=== PATIENT | female | born 1985 | race Caucasian/White ===

== ENCOUNTER 2018-05-23 13:52 | Emergency (ER) | payer BC, OTHER ==
[2018-05-23 14:00] VITALS: BP 113/77
[2018-05-23] MEDS ORDERED: AMOXICILLIN TRIHYDRATE 500 MG CAPSULE PO ONE (14:08)
[2018-05-23] MEDS ORDERED: AMOXICILLIN TR/POT CLAVULANATE 500-125 MG TAB PO ONE (14:08)
[2018-05-23] MEDS ORDERED: DIPH/PERTUSS(ACELL)/TETANUS VAC/PF 0.5 ML SYR (>=10YO) IM ONE (14:09)
[2018-05-23] MEDS ORDERED: IBUPROFEN 400 MG TABLET PO ONE (14:09)
[2018-05-23] MEDS ORDERED: ACETAMINOPHEN 325 MG TABLET PO ONE (14:09)
--- NOTE | 2018-05-23 14:10 | ER Document Report ---
HPI - HPI Patient complains to provider of: Dog bite right upper thigh Onset: Just prior to arrival Pain Level: 4 Context: 32-year-old bitten by a dog that belongs to a neighbor. The neighbor stated that the dog's immunizations are current. Patient is not allergic to any medicine. Tetanus status is unknown. Associated Symptoms: None Exacerbated by: Denies Relieved by: Denies Similar symptoms previously: No Recently seen / treated by doctor: No - ROS ROS below otherwise negative: Yes Systems Reviewed and Negative: Yes All other systems reviewed and negative Past Medical History - General Information source: Patient - Social History Smoking Status: Unknown if Ever Smoked Frequency of alcohol use: None Drug Abuse: None Occupation: minor Lives with: Family Family History: Reviewed & Not Pertinent - Medical History Medical History: Negative Surgical Hx: Negative Vertical Provider Document - CONSTITUTIONAL Agree With Documented VS: Yes Exam Limitations: No Limitations - INFECTION CONTROL TRAVEL OUTSIDE OF THE [place] IN LAST 30 DAYS: No - MUSCULOSKELETAL/EXTREMETIES Musculoskeletal/Extremeties: MAEW, FROM, Tender - Dog bite that is 1.5 x 3 cm full-thickness, wound edges are 3 mm apart, upper medial right thigh - NEURO Level of Consciousness: Alert Motor/Sensory: No Motor Deficit, No Sensory Deficit - DERM Integumentary: No Rash Course - Re-evaluation Re-evalutation: 05/23/18 14:24 Patient understands the instructions and since the dog's immunizations are current I told her that the [facility] animal control will contact her about the status of the dog and that we will be contacting animal control - Vital Signs Vital signs: Temp Pulse Resp BP Pulse Ox 98.5 F 64 15 113/77 98 05/23/18 13:58 05/23/18 13:58 05/23/18 13:58 05/23/18 13:58 05/23/18 13:58 Discharge - Discharge Clinical Impression: Dog bite Condition: Good Disposition: HOME, SELF-CARE Instructions: Animal Bites ([facility]), Augmentin ([facility]), Acetaminophen, Ibuprofen ( General) ([facility]) Additional Instructions: Wash with soap and water daily Bacitracin Nonstick dressing and keep it covered Return for any signs and symptoms of infection which is swelling increased pain red streaks pus Prescriptions: Amoxicillin/Potassium Clav [Augmentin 875-125 Tablet] 1 each PO BID #20 tablet Referrals: LOCALMD,NO [NO LOCAL MD] - Follow up as needed
== END 2018-05-23 14:43 | disposition home or self-care (01) ==
LOC: ER 13:52
DX: S71.151A Open bite, right thigh, initial encounter (principal); W54.0XXA Bitten by dog, initial encounter
CPT/HCPCS: 99283; 90471; 90715; J3490